=== PATIENT | female | born 1980 | race Caucasian/White ===

== ENCOUNTER 2018-07-15 05:21 | Day surgery (SDC) | payer OTHER ==
[2018-07-14 09:51] VITALS: BP 104/71
[~2018-07-15] VITALS: Ht 170.2 cm; Wt 52.6 kg
[~2018-07-15 05:21] MED LIST: Birth Control PO
[2018-07-15] MEDS ORDERED: LACTATED RINGERS 1,000 ML IV SCH (06:05)
[2018-07-15] MEDS ORDERED: VALA10004 PO (06:09)
[2018-07-15 06:10] VITALS: BP 104/71
[2018-07-15 06:21] LABS: HCG UR SG 1.011 (1.003-1.030)
[2018-07-15] MEDS ORDERED: BUPIVACAINE 0.25% ONE (06:42)
[2018-07-15] MEDS ORDERED: EPINEPHRINE 1 MG/ML, 1ML ONE (06:42)
[2018-07-15] MEDS ORDERED: FENTANYL PF 250 MCG/5ML ONE (06:52)
[2018-07-15] MEDS ORDERED: GABAPENTIN 300 MG CAPSULE PO ONE (07:00)
[2018-07-15] MEDS ORDERED: ACETAMINOPHEN 500 MG TABLET PO ONE (07:00)
[2018-07-15] MEDS ORDERED: BUPIVACAINE/PF 0.25% INFIL ONE (07:28)
[2018-07-15] MEDS ORDERED: EPINEPHRINE 1 MG/ML, 1ML INFIL ONE (07:29)
[2018-07-15] MEDS ORDERED: DIPHENHYDRAMINE 50 MG/ML, 1ML IVPush PRN (07:30)
[2018-07-15] MEDS ORDERED: FENTANYL PF 100 MCG/2ML IV PRN (07:30)
[2018-07-15] MEDS ORDERED: HYDROmorphone 1 MG/ML, 1ML IV PRN (07:30)
[2018-07-15] MEDS ORDERED: MEPERIDINE/PF 25MG/0.5ML IVPush PRN (07:30)
[2018-07-15] MEDS ORDERED: LABETALOL 5MG/ML, 20ML IV PRN (07:30)
[2018-07-15] MEDS ORDERED: OXYcodone 5 MG/5 ML ORAL.SOL UDC PO PRN (07:30)
[2018-07-15] MEDS ORDERED: PROCHLORPERAZINE 5 MG/ML, 2ML IV PRN (07:30)
[2018-07-15] MEDS ORDERED: hydrALAzine 20 MG/ML, 1ML IV PRN (07:30)
[2018-07-15] MEDS ORDERED: ONDANSETRON 2MG/ML, 2ML ONE (07:35)
[2018-07-15] MEDS ORDERED: PROPOFOL 10 MG/ML, 20ML ONE (07:35)
[2018-07-15] MEDS ORDERED: CEFAZOLIN 1,000 MG ONE (07:35)
[2018-07-15] MEDS ORDERED: NEOSTIGMINE 1 MG/ML, 10ML ONE (07:35)
[2018-07-15] MEDS ORDERED: GLYCOPYRROLATE 0.2MG/1ML, 5ML ONE (07:35)
[2018-07-15] MEDS ORDERED: ROCURONIUM 10MG/ML,5ML ONE (07:35)
[2018-07-15] MEDS ORDERED: SUCCINYLCHOLINE 20 MG/ML, 10ML ONE (07:35)
[2018-07-15] MEDS ORDERED: DEXAMETHASONE 4 MG/ML, 1ML ONE (07:35)
[2018-07-15] MEDS ORDERED: MEPERIDINE/PF 50 MG/ML ONE (08:32)
== END 2018-07-15 09:55 | disposition home or self-care (01) ==
LOC: OUT 05:21
PROVIDERS: ATTEND Obstetrics & Gynecology Gynecology
DX: Z30.2 Encounter for sterilization (principal); D64.9 Anemia, unspecified; Z72.89 Other problems related to lifestyle
CPT/HCPCS: 58670; 81025; 88302; J0171; J0330; J0690; J1100; J2175; J2405; J2704; J2710; J3010; J3490; J7120